=== PATIENT | female | born 1965 | race Caucasian/White ===

== ENCOUNTER 2017-10-07 07:49 | Outpatient (CLI) | payer OTHER ==
--- NOTE | 2017-10-07 09:55 | MRI ---
MRI LEFT FOOT WITHOUT CONTRAST: HISTORY: Metatarsalgia left foot, M89.9 and M77.42. COMPARISON: None. FINDINGS: Bones: There is a complete fracture of the 2nd and 3rd metatarsal necks. There is callus formation on both metatarsal necks. There is abnormal fluid between the fracture fragments of the 2nd metatarsal neck. The 3rd metatarsal neck fracture does not have significant fluid and is likely healing. There is a bnormal edema and periosteal reaction throughout the 2nd metatarsal diaphysis. There is also a stres s injury of the 3rd metatarsal base. The periosteal thickening of the 2nd metatarsal diaphysis is ab normally wavy. Severe degenerative changes are present at the great toe metatarsal phalangeal joint with articular s urface remodeling and cartilage loss. Severe degenerative change of the medial metatarsal sesamoid j oint. Moderate degenerative change of the lateral metatarsal sesamoid joint. There is edema within the intrinsic interosseous musculature of the 2nd and 3rd digits. No significa nt tenosynovitis. IMPRESSION: 1. Complete fractures of the 2nd and 3rd metatarsal necks with abnormal edema between the fracture f ragments second metatarsal neck suggesting continued micro motion. No significant edema within the 3 rd metatarsal fracture line. 2. Fluid signal throughout the 3rd metatarsal with abnormal wavy periosteal reaction. This may be s equelae of chronic stress and periosteal new bone formation. A followup examination is recommended a fter treatment and rest. 3. 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 4. Reactive edema of the intrinsic interosseous musculature of the 2nd and 3rd digits and associated 3rd metatarsals. POS: [facility]
== END 2017-10-07 07:50 | disposition home or self-care (01) ==
LOC: TBSIIMAG 07:49
PROVIDERS: ATTEND Podiatrist Foot & Ankle Surgery
DX: M77.42 Metatarsalgia, left foot (principal); M89.9 Disorder of bone, unspecified; S92.322A Displaced fracture of second metatarsal bone, left foot, initial encounter for closed fracture; S92.332A Displaced fracture of third metatarsal bone, left foot, initial encounter for closed fracture; R60.0 Localized edema; M19.072 Primary osteoarthritis, left ankle and foot

== ENCOUNTER 2017-11-17 14:50 | Outpatient (CLI) | payer OTHER | END 2017-11-17 14:51 | disposition home or self-care (01) | LOC: BICMAMMO 14:50 | DX: Z12.31 Encounter for screening mammogram for malignant neoplasm of breast (principal) | CPT/HCPCS: 77063; 77067 ==

== ENCOUNTER 2019-04-20 14:15 | Outpatient (CLI) | payer OTHER ==
--- NOTE | 2019-04-20 15:15 | MMO ---
Bilateral MAMMO Bilat Screen [facility]. CLINICAL HISTORY: Patient is 53 years old and is seen for screening. The patient has no family history of breast cancer. The patient has no personal history of cancer. VIEWS: The views performed were: bilateral craniocaudal with tomosynthesis and bilateral mediolateral oblique with tomosynthesis. FILMS COMPARED: The present examination has been compared to prior imaging studies performed at [facility] on 01/25/2011, 10/21/2016 and 11/17/2017. This study has been interpreted with the assistance of computer-aided detection. MAMMOGRAM FINDINGS: There are scattered fibroglandular densities. There are no suspicious masses, suspicious calcifications, or new areas of architectural distortion. IMPRESSION: THERE IS NO MAMMOGRAPHIC EVIDENCE OF MALIGNANCY. A ROUTINE FOLLOW-UP MAMMOGRAM IN 1 YEAR IS RECOMMENDED. THE RESULTS OF THIS EXAM WERE SENT TO THE PATIENT. ACR BI-RADS Category 1 - Negative MAMMOGRAPHY NOTE: 1. A negative mammogram report should not delay a biopsy if a dominant of clinically suspicious mass is present. 2. Approximately 10% to 15% of breast cancers are not detected by mammography. 3. Adenosis and dense breasts may obscure an underlying neoplasm. Reported by: ELIJAH CASTRO MD Electonically Signed: [id number]
== END 2019-04-20 14:16 | disposition home or self-care (01) ==
LOC: BICMAMMO 14:15
PROVIDERS: ATTEND Specialist
DX: Z12.31 Encounter for screening mammogram for malignant neoplasm of breast (principal)
CPT/HCPCS: 77063; 77067